=== PATIENT | male | born 1970 | race Caucasian/White ===

== ENCOUNTER 2021-02-17 15:01 | Inpatient (IN) | payer OTHER ==
[2021-02-17 17:49] VITALS: BMI 33.5
[2021-02-17] MEDS ORDERED: LORazepam 1 MG TABLET PO PRN (17:49)
[2021-02-17] MEDS ORDERED: MAGNESIUM HYDROX 2400MG/30ML ORAL SUSPENSION 30 ML CUP PO PRN (17:49)
[2021-02-17] MEDS ORDERED: ACETAMINOPHEN 325 MG TABLET (FP) PO PRN ×2 (17:49)
[2021-02-17] MEDS ORDERED: BISMUTH SUBSALICYLATE 524 MG/30 ML PO PRN (17:49)
[2021-02-17] MEDS ORDERED: MENTHOL/PHENOL 1 EACH UD MM PRN (17:49)
[2021-02-17] MEDS ORDERED: MAGNESIUM CITRATE 300 ML BOTTLE PO PRN (17:49)
[2021-02-17] MEDS ORDERED: ONDANSETRON *ODT* 4 MG TABLET SL PRN (17:49)
[2021-02-17] MEDS ORDERED: IBUPROFEN 400 MG TABLET (FP) PO PRN (17:49)
[2021-02-17] MEDS ORDERED: LORazepam 2 MG TABLET PO ONE (18:30)
[2021-02-17] MEDS ORDERED: ONDANSETRON *ODT* 4 MG TABLET ONE (18:34)
[2021-02-17] MEDS ORDERED: LORazepam 2 MG TABLET ONE (18:34)
[2021-02-17] MEDS: METHOCARBAMOL 500 MG TABLET PO PRN (19:52)
[2021-02-17] MEDS: hydrOXYzine PAMOATE 25 MG CAPSULE (FP) PO SCH ×2 (19:52→22:27)
[2021-02-17] MEDS: MAG HYDROX/AL HYDROX/SIMETH 30 ML UNIT-DOSE CUP PO PRN (19:58)
[2021-02-17] MEDS: LORazepam 2 MG TABLET PO SCH (22:27)
[2021-02-17] MEDS: THIAMINE HCL 100 MG TABLET (FP) PO SCH (22:27)
[2021-02-17] MEDS: MELATONIN 5 MG TABLETS PO SCH (22:27)
[2021-02-18] MEDS ORDERED: TRIMETHOBENZAMIDE HCL 200MG/2ML INJ IM ONE (03:45)
[2021-02-18] MEDS: MAG HYDROX/AL HYDROX/SIMETH 30 ML UNIT-DOSE CUP PO PRN ×3 (03:56→16:23)
[2021-02-18] MEDS: LORazepam 2 MG TABLET PO SCH ×4 (05:48→22:29)
[2021-02-18] MEDS: hydrOXYzine PAMOATE 25 MG CAPSULE (FP) PO SCH ×2 (05:49→09:59)
[2021-02-18] MEDS: METHOCARBAMOL 500 MG TABLET PO PRN (08:21)
[2021-02-18] MEDS: PRENATAL VITAMINS W/ FOLIC ACID TABLET (FP) PO SCH (09:59)
[2021-02-18] MEDS: LOSARTAN 50MG/HCTZ 12.5MG 1 TAB PO SCH (09:59)
[2021-02-18 10:08] LABS: BLOOD UREA NITROGEN 12.3 mg/dL (7-18); HEMATOCRIT 47.8 % (35.4-49); HEMOGLOBIN 16.2 GM/dL (11.7-16.9); MCH 33.5 pg (25.7-33.7); MEAN CELL VOLUME 98.6 fl (80-96); MEAN PLT VOLUME 10.3 fl (7.5-11.1); PLATELET COUNT 202 10^3/uL (134-434); RBC 4.85 M/mm3 (4.00-5.60)
[2021-02-18 10:10] LABS: CALCIUM 10.6 mg/dL (8.5-10.1)
[2021-02-18 10:13] LABS: BILIRUBIN,TOTAL 2.3 mg/dL (0.2-1); CREATININE 1.9 mg/dL (0.55-1.3)
[2021-02-18] MEDS ORDERED: hydrOXYzine PAMOATE 25 MG CAPSULE (FP) PO PRN (10:25)
[2021-02-18] MEDS ORDERED: PANTOPRAZOLE 40 MG TABLET PO ONE (14:01)
[2021-02-18] MEDS: chlorproMAZINE HCL 25 MG TABLET PO SCH ×2 (14:55→22:29)
[2021-02-18] MEDS ORDERED: MASKS NR ONE (17:26)
[2021-02-18 18:49] LABS: HIV INTERPRETATION NEGATIVE (NEGATIVE)
[2021-02-18] MEDS ORDERED: SUVOREXANT 10 MG TABLET PO PRN (22:00)
[2021-02-18] MEDS: THIAMINE HCL 100 MG TABLET (FP) PO SCH (22:29)
[2021-02-18] MEDS: MELATONIN 5 MG TABLETS PO SCH (22:29)
[2021-02-19] MEDS: chlorproMAZINE HCL 25 MG TABLET PO SCH (06:02)
[2021-02-19] MEDS: METHOCARBAMOL 500 MG TABLET PO PRN (06:03)
[2021-02-19] MEDS: LORazepam 1 MG TABLET PO SCH ×4 (06:03→22:36)
[2021-02-19 10:25] LABS: ALBUMIN 2.9 g/dl (3.4-5.0); BLOOD UREA NITROGEN 12.1 mg/dL (7-18); CALCIUM 9.3 mg/dL (8.5-10.1)
[2021-02-19 10:29] LABS: CREATININE 1.7 mg/dL (0.55-1.3)
[2021-02-19 10:30] LABS: BILIRUBIN,TOTAL 1.8 mg/dL (0.2-1)
[2021-02-19] MEDS: LOSARTAN 50MG/HCTZ 12.5MG 1 TAB PO SCH (10:42)
[2021-02-19] MEDS: PANTOPRAZOLE 40 MG TABLET PO SCH (10:42)
[2021-02-19] MEDS: PRENATAL VITAMINS W/ FOLIC ACID TABLET (FP) PO SCH (10:42)
[2021-02-19] MEDS: MAG HYDROX/AL HYDROX/SIMETH 30 ML UNIT-DOSE CUP PO PRN (11:56)
[2021-02-19] MEDS: MELATONIN 5 MG TABLETS PO SCH (22:36)
[2021-02-19] MEDS: THIAMINE HCL 100 MG TABLET (FP) PO SCH (22:36)
[2021-02-20] MEDS ORDERED: LORazepam 0.5 MG TABLET PO PRN
[2021-02-20] MEDS: LORazepam 0.5 MG TABLET PO SCH ×2 (06:02→09:59)
[2021-02-20 09:52] VITALS: BP 163/99; PULSE 92; TEMP 96.9
[2021-02-20] MEDS: PANTOPRAZOLE 40 MG TABLET PO SCH (09:59)
[2021-02-20] MEDS: PRENATAL VITAMINS W/ FOLIC ACID TABLET (FP) PO SCH (09:59)
[2021-02-20] MEDS: LOSARTAN 50MG/HCTZ 12.5MG 1 TAB PO SCH (09:59)
[2021-02-21] MEDS ORDERED: LORazepam 0.5 MG TABLET PO ONE (05:00)
== END 2021-02-20 10:04 | disposition home or self-care (01) | DRG 897 ==
LOC: YASAS 15:01 → Y3N 18:58
PROVIDERS: ADMIT Allergy & Immunology; ATTEND Allergy & Immunology
PROC: HZ2ZZZZ Detoxification Services for Substance Abuse Treatment (ICD-10-PCS; principal; 2021-02-17)
DX: F10.230 Alcohol dependence with withdrawal, uncomplicated (principal); K57.92 Diverticulitis of intestine, part unspecified, without perforation or abscess without bleeding; F10.282 Alcohol dependence with alcohol-induced sleep disorder; F10.24 Alcohol dependence with alcohol-induced mood disorder; F25.9 Schizoaffective disorder, unspecified; I10 Essential (primary) hypertension; K29.70 Gastritis, unspecified, without bleeding; Z87.891 Personal history of nicotine dependence; Z88.0 Allergy status to penicillin; Z91.013 Allergy to seafood
CPT/HCPCS: 36415; 80053; 85027; 86780; 87389; C9803; Q0162; U0003; U0005